=== PATIENT | male | born 1950 | race Caucasian/White ===

== ENCOUNTER 2021-12-09 12:33 | Emergency (ER) | payer MEDICARE ==
[~2021-12-09] VITALS: Ht 175.3 cm; Wt 79.4 kg
--- NOTE | 2021-12-09 12:50 | NUR ---
Recived pt 71 yrs male walking in c/o laceration on lt indix finger closed car door open skin no bleeding pt uptodat with TD shut examine by .Dr Lee clean with NS AND BETDINE Ssocked and clean
--- NOTE | 2021-12-09 13:20 | NUR ---
clean rt indix finger with NS AND BETADINE Soucked for 5min
--- NOTE | 2021-12-09 13:56 | NUR ---
x-ray done and Dermabond appled by clean and dry
--- NOTE | 2021-12-09 14:15 | NUR ---
d/c instraction given to pt fully and verblized understood
[2021-12-09 14:20] VITALS: BP 145/96
== END 2021-12-09 14:17 | disposition home or self-care (01) ==
LOC: ER 12:33
DX: S67.190A Crushing injury of right index finger, initial encounter (principal); S61.210A Laceration without foreign body of right index finger without damage to nail, initial encounter; X58.XXXA Exposure to other specified factors, initial encounter; Y92.89 Other specified places as the place of occurrence of the external cause
CPT/HCPCS: 73140; A4663

== ENCOUNTER 2021-12-12 15:32 | Emergency (ER) | payer MEDICARE ==
[~2021-12-12] VITALS: Ht 175.3 cm; Wt 79.4 kg
--- NOTE | 2021-12-12 16:19 | NUR ---
Patient was seen by . Wound is clean and dry, no redness, swelling or drainage noted. Sterile steri strips applied. DC and follow up instructions given and explained to patient who states he understands all instructions including steristrip and wound care
== END 2021-12-12 16:23 | disposition home or self-care (01) ==
LOC: ER 15:35
DX: T81.33XA Disruption of traumatic injury wound repair, initial encounter (principal); S61.210D Laceration without foreign body of right index finger without damage to nail, subsequent encounter; W23.0XXD Caught, crushed, jammed, or pinched between moving objects, subsequent encounter; Z85.828 Personal history of other malignant neoplasm of skin
CPT/HCPCS: A4663